=== PATIENT | male | born 1945 | race Caucasian/White ===

== ENCOUNTER 2017-09-27 07:56 | Day surgery (SDC) | payer MEDICARE, BC ==
[2017-09-27] MEDS ORDERED: LIDOCAINE HCL 1% MPF SOL ONE ×2 (08:10→08:33)
[2017-09-27] MEDS ORDERED: CLINDAMYCIN 150 MG/ML SOL ONE (08:31)
[2017-09-27 11:18] VITALS: O2SAT 94
[2017-09-27 11:52] VITALS: BP 116/74; PULSE 61; RESP 20; TEMP 96.4
== END 2017-09-27 12:15 | disposition home or self-care (01) | DRG 74 ==
LOC: SURG 07:56
PROVIDERS: ATTEND Orthopaedic Surgery
DX: G56.22 Lesion of ulnar nerve, left upper limb (principal); G56.02 Carpal tunnel syndrome, left upper limb
CPT/HCPCS: 82962; J2250; J3010; J3490; A6402; J2001; J2704